=== PATIENT | male | born 1990 | race Caucasian/White ===

== ENCOUNTER 2018-10-28 16:51 | Emergency (ER) | payer SELFPAY ==
--- NOTE | 2018-10-28 17:23 | RAD ---
EXAM: 4 views of the left knee HISTORY: Knee pain COMPARISON: None FINDINGS: No knee effusion is seen. There is no evidence of acute fracture or dislocation. No signifi cant degenerative changes are seen. No soft tissue swelling is present. IMPRESSION: No evidence of acute osseous abnormality.
[2018-10-28] MEDS ORDERED: traMADol HCl 50 MG TAB ONE (18:20)
== END 2018-10-28 18:27 | disposition home or self-care (01) ==
LOC: ERS 16:51
DX: S80.02XA Contusion of left knee, initial encounter (principal); Z87.891 Personal history of nicotine dependence; W19.XXXA Unspecified fall, initial encounter